=== PATIENT | male | born 1985 | race Hispanic/Latino ===

== ENCOUNTER 2019-12-05 19:17 | Emergency (ER) | payer OTHER ==
[2019-12-05] MEDS ORDERED: GUAIFENESIN-DM 200/20 MG 10 ML ONE (19:43)
[2019-12-05] MEDS ORDERED: BENZONATATE 100 MG CAPSULE PO ONE (19:44)
[2019-12-05] MEDS ORDERED: METHYLPREDNISOLONE SOD SUCC 125MG/2ML VIAL ONE (19:44)
[2019-12-05] MEDS ORDERED: SODIUM CHLORIDE 0.9% 1000ML 1,000 ML IV ONE (19:45)
[2019-12-05] MEDS ORDERED: ACETAMINOPHEN EXTRA STRENGTH 500 MG TABLET ONE (19:45)
[2019-12-05 19:47] LABS: BASOPHILS % (AUTO) 0.3 % (0.0-5.0); EOSINOPHILS % (AUTO) 0.7 % (0.0-8.0); HEMATOCRIT 45.6 % (42-54); LYMPHOCYTES % (AUTO) 32.7 % (21.0-51.0); MEAN CORPUSCULAR HEMOGLOBIN 30.4 pg (27.0-33.0); MEAN CORPUSCULAR HGB CONC 33.6 g/dL (32.0-36.0); MEAN CORPUSCULAR VOLUME 90.5 fL (79-99); MONOCYTES % (AUTO) 10.2 % (3.0-13.0); NEUTROPHILS % (AUTO) 55.4 % (40.0-77.0); PLATELET COUNT (AUTO) 200 K/uL (130-400); RED BLOOD CELL COUNT(AUTO) 5.04 MIL/uL (4.50-6.20); RED CELL DISTRIBUTION WIDTH 12.8 % (11.0-15.5); WHITE BLOOD COUNT (AUTO) 2.9 K/uL (4.8-10.8)
[2019-12-05 20:00] LABS: CREATININE 1.2 mg/dL (0.5-1.5); POTASSIUM 4.5 mmol/L (3.5-5.1)
[2019-12-05 20:14] LABS: ALBUMIN 2.9 g/dL (3.5-5.0); BILIRUBIN,TOTAL 0.3 mg/dL (0.2-1.0); TOTAL PROTEIN, SERUM 7.5 g/dL (6.0-8.3)
[2019-12-05 20:38] LABS: BAND NEUTROPHILS % (MANUAL) 1 % (0-2); LYMPHOCYTES % (MANUAL) 32 % (22-44); MAN.DIFF COMMENT-IMPRESSION MANUAL DIFFERENTIAL; MONOCYTES % (MANUAL) 6 % (2-9); SEGMENTED NEUTROPHILS % 61 % (40-70)
[2019-12-05 20:39] LABS: PLATELET MORPHOLOGY COMMENT ADEQUATE
== END 2019-12-05 21:06 | disposition home or self-care (01) ==
LOC: EDH 19:17
DX: J10.1 Influenza due to other identified influenza virus with other respiratory manifestations (principal); I10 Essential (primary) hypertension; E11.9 Type 2 diabetes mellitus without complications; Z88.0 Allergy status to penicillin; Z72.0 Tobacco use
CPT/HCPCS: 36415; 71046; 80053; 82550; 83605; 85025; 87804 ×2; 96374; 99284; J2930; J7030

== ENCOUNTER 2024-08-22 18:46 | Emergency (ER) | payer BC ==
[~2024-08-22] VITALS: Ht 172.7 cm; Wt 158.8 kg
--- NOTE | 2024-08-22 18:54 | ERN ---
ED Note History of Present Illness Stated Complaint: RT EYE PAIN Chief Complaint: Eye Problems Time Seen by MD: 18:49 Dictation: PATIENT IS A 39-YEAR-OLD MALE COMING IN TODAY WITH COMPLAINTS OF PAIN TO THE RIGHT EYE STATUS POST AN INJURY EARLIER TODAY. HE STATES HE WAS WORKING IN [facility] UNDER A CAR WHEN SOMETHING FELL IN HIS RIGHT EYE. ATTEMPTED TO WASHED OUT WITH EYE WASH WAS UNSUCCESSFUL. DENIES ANY CONTACT LENSES, DOES NOT WEAR PROTECTIVE EYE COVERING WITH WORKING. TETANUS SHOT IS UP TO DATE. Allergies: Coded Allergies: Penicillins (Unverified Allergy, Unknown, 12/05/19) Past Medical History PSYCH History: no pertinent psych hx RN Note Reviewed/Agreed w/PFSH: Yes Review of System Dictation CONSTITUTIONAL: NEGATIVE EXCEPT FOR HPI HEAD/FACE: NEGATIVE EXCEPT FOR HPI EENT: NEGATIVE EXCEPT FOR HPI RIGHT EYE PAIN RESPIRATORY: NEGATIVE EXCEPT FOR HPI GASTROINTESTINAL/ABDOMINAL: NEGATIVE EXCEPT FOR HPI GENITOURINARY: NEGATIVE EXCEPT FOR HPI MUSCULOSKELETAL: NEGATIVE EXCEPT FOR HPI INTEGUMENTARY: NEGATIVE EXCEPT FOR HPI NEUROLOGICAL/PSYCH: NEGATIVE EXCEPT FOR HPI HEMATOLOGIC/LYMPHATIC: NEGATIVE EXCEPT FOR HPI ALL SYSTEMS NEGATIVE, EXCEPT NOTED ABOVE. 13 POINT REVIEW OF SYSTEMS ASSESSED AND ALL NEGATIVE EXCEPT FOR ABOVE. Initial Vital Sign VS Vital Signs Date Time Temp Pulse Resp B/P (MAP) Pulse Ox O2 Delivery O2 Flow Rate FiO2 08/22/24 18:49 98.2 78 18 223/128 98 Physical Exam Dictation VITAL SIGNS REVIEWED GENERAL APPEARANCE: ALERT, ORIENTED X 3, MODERATE ACUTE DISTRESS, WELL DEVELOPED, NOURISHED. HEAD AND FACE: NON-TRAUMATIC. EYES: PERRL, RIGHT CONJUNCTIVA INJECTED, EYELID NO TRAUMA, ANTERIOR CHAMBER WITH ARCUS SENILIS. EARS: PINNAS INTACT AND NO SIGNS OF TRAUMA OR ERYTHEMA EAR CANALS CLEAR AND NO DISCHARGE TM NO ERYTHEMA NOSE: NO DISCHARGE, NO BLEEDING. OROPHARYNX: MOUTH NORMAL, TONGUE PINK, PHARYNX CLEAR,NO ERYTHEMA, TONSILS NO EXUDATES, NO ABSCESSES NOTED, MUCOUS MEMBRANE MOIST NECK: SUPPLE, NON-TENDER, NO THYROMEGALY, NO MASSES, NO JVD, NO BRUITS BREAST:DEFERRED CHEST:NO TENDERNESS, NO CREPITUS, NO PARADOXICAL MOVEMENT, NO RETRACTIONS LUNGS:CLEAR, WELL-VENTILATED, SYMMETRIC, NO RALES, NO WHEEZING, NO RHONCHI, NO STRIDOR, GOOD BREATH SOUNDS BILATERALLY HEART: REGULAR RATE, REGULAR RHYTHM, NO MURMUR, NO GALLOPS VASCULAR: NO PERIPHERAL EDEMA, ABDOMEN: SOFT, POSITIVE BOWEL SOUNDS, NONDISTENDED, NO GUARDING, NONTENDER, NO REBOUND, NO MASSES NO HEPATOMEGALY, NO SPLENOMEGALY, NO CARIAS'S SIGN, NO HERNIAS. RECTAL: DEFERRED GENITAL: DEFERRED NEUROLOGICAL: NORMAL SPEECH, MOTOR FUNCTION INTACT, SENSORY FUNCTION INTACT MUSCULOSKELETAL: NECK NONTENDER, FULL RANGE OF MOTION, BACK NONTENDER, FULL RANGE OF MOTION, EXTREMITIES: NONTENDER, FULL RANGE OF MOTION SKIN: COLOR PINK, DRY, NO TURGOR, NO RASH, NO LACERATIONS, NO ABRASIONS, NO CONTUSIONS. LYMPHATIC: DEFERRED Results (Laboratory/Radiology) Labs Reviewed?: Yes ED Course ED Course Orders Procedure Category Date Status Time Tetracaine Hcl PHA 08/22/24 In Process (Pontocaine 0.5% 19:00 Fluorescein Sodium PHA 08/22/24 In Process (Jkeke-B-Vjrfp At) 19:00 Ibuprofen 800 Mg Tab PHA 08/22/24 Complete (Motrin) 19:00 Visual Acuity Test CPOE 08/22/24 Transmitted (Er) 18:51 Erythrocin 0.5% Ophth PHA 08/22/24 Verified Oint (Erythrocin 0 20:00 Current Medications Medications (Trade) Dose Ordered Sig/Ana Route PRN Reason Start Time Stop Time Status Last Admin Dose Admin Fluorescein Sodium (Yumpw-A-Saoxo At) 1 strip ONCE OP 08/22/24 19:00 09/21/24 18:59 08/22/24 19:16 Ibuprofen (moTRIN) 800 mg ONCE ONCE PO 08/22/24 19:00 08/22/24 19:01 DC Tetracaine HCl (Pontocaine 0.5% Ophth Soln) 2 drop ONCE OP 08/22/24 19:00 09/21/24 18:59 08/22/24 19:17 Vital Signs Date Time Temp Pulse Resp B/P (MAP) Pulse Ox O2 Delivery O2 Flow Rate FiO2 08/22/24 18:49 98.2 78 18 223/596 20 1390, RIGHT EYE EXAMINED WITH FOREIGN BODY REMOVED AND INJURIES IDENTIFIED. WE WILL FOLLOW TO APPLY ERYTHROMYCIN OPHTHALMIC OINTMENT PATIENT WILL BE DISCHARGED HOME WITH ANALGESIA AND TOLD TO FOLLOW UP AT [facility] Medical Decision Making MDM MEDICAL DECISION-MAKING BASED ON VISUAL ACUITY CHECK AND EYE EXAM WITH TETRACAINE FOREIGN BODY REMOVED ABRASIONS IDENTIFIED AND OPHTHALMIC OINTMENT WAS APPLIED BY RN. PATIENT DISCHARGED HOME TO FOLLOW UP WITH [facility] Procedure Procedure Dictation: 1929 PROCEDURE EXPLAINED TO PATIENT AND HE AGREED TO PROCEED TETRACAINE TWO DROPS TO RIGHT EYE FLUORESCEIN APPLIED RIGHT EYE EXAMINED WITH WOOD'S LAMP TO INCLUDE EVERSION OF UPPER LID. PATIENT HAD FOREIGN BODY TO THE INNER CANTHUS THAT WAS REMOVED WITH A Q-TIP HE HAD A CORNEAL ABRASION AT 12:00 O'CLOCK, CONJUNCTIVAL ABRASION AT 03:00 O'CLOCK PATIENT TOLERATED WELL DX & DISP Disposition: Discharge Departure Impression: Primary Impression: Abrasion of right conjunctiva Additional Impressions: Right corneal abrasion, Foreign body of right eye Condition: Stable Scripts Ibuprofen (Ibuprofen 800 mg Tab) 800 Mg Tab 800 MG PO Q8H PRN for fever or pain, #30 TAB 0 Refills Prov: VALERIE SANDOVAL NP 08/22/24 Erythromycin Base (Erythromycin) 5 Mg/Gram (0.5 %) Oint...g. 1 APPL OP QID for 7 Days, #5 GM 0 Refills apply 1 cm ribbon into the lower conjunctival sac, RIGHT EYE Prov: VALERIE SANDOVAL NP 08/22/24 Additional Instructions: FOLLOW-UP WITH PRIMARY CARE PROVIDER IN 1 TO 2 DAYS. TAKE MEDICATIONS DIRECTED HERE IN THE EMERGENCY ROOM. OKAY TO CONTINUE HOME MEDICATIONS UNLESS OTHERWISE DISCUSSED DURING YOUR VISIT IN THE EMERGENCY ROOM TODAY. RETURN TO YOUR NEAREST EMERGENCY ROOM IF SYMPTOMS WORSEN OR IF THERE IS NO IMPROVEMENT. CALL 911 IF YOU NEED IMMEDIATE ASSISTANCE. TAKE TYLENOL OR MOTRIN [id number] NEEDED AND IF NO CONTRAINDICATIONS ARE PRESENT. INCREASE ORAL HYDRATION. A WOUND CULTURE OR URINE CULTURE WAS ORDERED HERE IN THE EMERGENCY ROOM DEPARTMENT PLEASE FOLLOW-UP WITH PRIMARY CARE PROVIDER AND ADVISE THEM TO GET REPEAT PORTS FROM OUR FACILITY. IF YOU HAD ANY ABI WRAP/SPLINTS THAT WERE APPLIED HERE, PLEASE DO NOT REMOVE THEM UNTIL YOU SEE YOUR PRIMARY CARE OR SPECIALTY. APPLY ERYTHROMYCIN OINTMENT TO YOUR RIGHT EYE DIRECTED. FOLLOW UP WITH [facility] ON SUNDAY, CALL FOR AN APPOINTMENT. Referrals: SELF,REFERRAL (PCP) Time of Disposition: 19:44 I have reviewed the case, and I agree with, Diagnosis and Plan VALERIE SANDOVAL NP Aug 22, 2024 18:54
[2024-08-22] MEDS: FLUORESCEIN SODIUM 1 STRIP STRIP OP SCH (19:16)
[2024-08-22] MEDS: TETRACAINE HCL 0.5% 4 ML OPHTH SOLN OP SCH (19:17)
[2024-08-22] MEDS ORDERED: ERYT1OIN7 OP (19:46)
[2024-08-22] MEDS ORDERED: IBUP-2077 PO (19:46)
[2024-08-22 19:50] VITALS: BP 184/81; PULSE 72; RESP 18; TEMP 98.2; O2SAT 97
[2024-08-22] MEDS: ibuPROFEN 800 MG TAB PO ONE (20:01)
[2024-08-22] MEDS: ERYTHROMYCIN BASE 0.5% OPHTH OINT 1 GM TUBE OU SCH (20:01)
== END 2024-08-22 20:31 | disposition home or self-care (01) ==
LOC: EDH 18:46
DX: T15.11XA Foreign body in conjunctival sac, right eye, initial encounter (principal); Z88.0 Allergy status to penicillin; W44.8XXA Other foreign body entering into or through a natural orifice, initial encounter; Y93.89 Activity, other specified; Y92.89 Other specified places as the place of occurrence of the external cause; Y99.8 Other external cause status
CPT/HCPCS: 65205; 99284

== ENCOUNTER 2025-07-06 08:31 | Emergency (ER) | payer BC ==
[~2025-07-06] VITALS: Ht 172.7 cm; Wt 144.0 kg
[~2025-07-06 08:31] MED LIST: ERYT1OIN7 OP; IBUP-2077 PO
--- NOTE | 2025-07-06 09:45 | HMCIMG ---
EXAM: US Scrotum. CLINICAL HISTORY: testicle pain TECHNIQUE: Real-time ultrasound of the scrotum with color Doppler and image documentation. COMPARISON: None provided. FINDINGS: RIGHT TESTICLE: Normal in size and echogenicity, no abnormal mass. Normal Doppler flow. LEFT TESTICLE: Normal in size and echogenicity, no abnormal mass. Normal Doppler flow. EPIDIDYMIDES: The epididymes are normal in size and demonstrate Doppler flow within normal limits. Tiny cyst with no septations measuring 2x2x1 cm. SCROTUM: Bilateral minimal hydrocele. No varicocele, or extratesticular mass seen. IMPRESSION: Right epididymal simple cyst. Bilateral minimal hydrocele. No acute abnormality evident on sonographic examination of the scrotum. /Louisa
--- NOTE | 2025-07-06 09:54 | ERN ---
General Chief Complaint: Testicular Injury/Pain Stated Complaint: LT TESTICULAR PAIN Time Seen by MD: 08:35 History of Present Illness Initial Comments 39-year-old male, obese, she had diabetes hypertension, presents for penis pain and testicular pain. Patient reports for the last month or so he has had some chapping and discomfort in the tip of the penis as well as some discomfort with the bilateral scrotum. No fevers or systemic illness. No burning sensation with urination. He reports that he is a diabetic but has been off metformin. He has not been taking any hypertensive medications. He had a similar presentation with this a couple of years ago that cleared on its own. Allergies: Coded Allergies: Penicillins (Unverified Allergy, Unknown, 12/05/19) Home Meds Active Scripts Ibuprofen (Ibuprofen 800 mg Tab) 800 Mg Tab, 800 MG PO Q8H PRN for fever or pain, #30 TAB 0 Refills Prov:VALERIE SANDOVAL FRONT END SPECIALIST 08/22/24 Erythromycin Base (Erythromycin) 5 Mg/Gram (0.5 %) Oint...g., 1 APPL OP QID for 7 Days, #5 GM 0 Refills apply 1 cm ribbon into the lower conjunctival sac, RIGHT EYE Prov:VALERIE SANDOVAL FRONT END SPECIALIST 08/22/24 Past Medical History Past Medical History: Diabetes-Type II, Hypertension Medical History Other: NON COMPLIANT W/ MEDS Past Surgical History: None ROS Dictation CONSTITUTIONAL: No chills, no fever, no weakness, no diaphoresis, no malaise. HEAD/FACE: No signs of trauma. EENT: No eye pain, no blurred vision, no tearing, no double vision, no ear pain, no ear discharge, no nose pain, no nasal congestion, no throat pain, no throat swelling, no mouth pain. RESPIRATORY: No cough, no orthopnea, no SOB, no stridor, no wheezing. CARDIOVASCULAR: No chest pain, no edema, no palpitations, no syncope. GASTROINTESTINAL/ABDOMINAL: No abdominal pain, no constipation, no diarrhea, no nausea, no vomiting. GENITOURINARY: Testicular pain, pain has been MUSCULOSKELETAL: No back pain, no gout, no joint pain, no joint swelling, no muscle pain, no muscle stiffness, no neck pain. INTEGUMENTARY: No change in color, no change in hair/nails, no dryness, no lesion, no lumps, no rash. NEUROLOGICAL/PSYCH: No anxiety, not depressed, no emotional problem, no headache, no numbness, no pre-existing deficit, no history of seizures, no tremors, no weakness. HEMATOLOGIC/LYMPHATIC: Not anemic, no history of blood clots, no apparent bleeding, no bruising, glands not swollen. All Systems Negative, Except as Noted. Physical Exam Physical Exam Dictation VITAL SIGNS: Reviewed. GENERAL APPEARANCE: Alert, oriented x3, no acute distress, obese. HEAD AND FACE: Non-traumatic. EYES: PERRL, pink conjunctivas, eyelid no trauma, anterior chamber clear. EARS: Pinnas intact and no signs of trauma or erythema. Ear canals clear and no discharge. TMs no erythema. NOSE: No discharge, no bleeding. OROPHARYNX: Mouth normal, teeth no caries, tongue pink. Pharynx clear, no erythema. Tonsils no exudates, no abscesses noted. Mucous membrane moist. NECK: Supple, non-tender, no thyromegaly, no masses, no JVD, no bruits. BREAST: Deferred. CHEST: No tenderness, no crepitus, no paradoxical movement, no retractions. LUNGS: Clear, well-ventilated, symmetric, no rales, no wheezing, no rhonchi, no stridor, good breath sounds bilaterally. HEART: Regular rate, regular rhythm, no murmur, no gallops. VASCULAR: No peripheral edema. ABDOMEN: Soft, positive bowel sounds, nondistended, no guarding, nontender, no rebound, no masses no hepatomegaly, no splenomegaly, no Cartagena's sign, no hernias. RECTAL: Deferred. GENITAL: Deferred. NEUROLOGICAL: Normal speech, gross motor function intact, gross sensory function intact. MUSCULOSKELETAL: Neck nontender, full range of motion, back nontender, full range of motion. EXTREMITIES: Nontender, full range of motion. SKIN: Color pink, dry, no turgor, no rash, no lacerations, no abrasions, no contusions. LYMPHATICS: Deferred. Results Laboratory and Microbiology Lab and Micro Result Laboratory Tests Test 07/06/25 09:56 Whole Blood Glucose 327 MG/DL (70-110) H MDM Chief complaint of penis pain and testicular pain Historian: Patient Comorbidities: Obesity, hypertension, diabetes Limitations by social determinants of health: None Differential diagnosis: Balanitis, torsion, mass, other Clinical exam he has a balanitis. Testicles are intact. There is no lesions. Normal lie. Ultrasound shows a small epididymal cyst bilateral hydroceles. Unlikely to be causing the patient's symptoms. He has clear balanitis and fissures of the foreskin. Likely causing his symptoms. His blood glucose 327. We will prescribe hypertension medications and diabetes medicines since he used to be on these but ran out. We will also prescribed nystatin. Patient agrees with the plan. ED Course Orders Procedure Category Date Status Time Us Scrotum & Contents US 07/06/25 Resulted 08:40 Urinalysis Profile LAB 07/06/25 In Process 08:40 Bedside Glucose CPOE 07/06/25 Transmitted Fingerstick 09:49 Vital Signs Date Time Temp Pulse Resp B/P (MAP) Pulse Ox O2 Delivery O2 Flow Rate FiO2 07/06/25 09:50 98.1 80 18 173/115 97 Room Air* 0 21 07/06/25 08:33 98.2 78 16 167/108 99 Room Air 0 DX & DISP Disposition: Discharge Departure Impression: Primary Impression: Balanitis Additional Impressions: Epididymal cyst, Hypertension Condition: Stable Scripts Nystatin (Nystatin) 100,000 Unit/Gram Cream.gm. 1 APPL TP TID for 5 Days, #15 GM 0 Refills apply to affected area(s) Prov: TASIA SCHWARZ DO 07/06/25 Glipizide (Glipizide ER) 5 Mg Tab.er.24 1 TAB PO DAILY for 30 Days, #30 TAB 0 Refills Prov: TASIA SCHWARZ DO 07/06/25 Metformin HCl (Metformin HCl) 1,000 Mg Tablet 1 TAB PO BID for 30 Days, #60 TAB 0 Refills Prov: TASIA SCHWARZ DO 07/06/25 Lisinopril (Lisinopril) 10 Mg Tablet 1 TAB PO DAILY for 30 Days, #30 TAB 0 Refills Prov: TASIA SCHWARZ DO 07/06/25 Additional Instructions: Your symptoms are most consistent with a balanitis, which is often overgrowth of yeast. This will cause dryness and chapping and irritation. I have prescribed nystatin cream. Apply multiple times frequently until your symptoms improve. The ultrasound also shows a very small epididymal cyst. These are often benign. This is unlikely to be causing your symptoms. Otherwise the ultrasound is unremarkable. Wear supportive underwear. Your glucose is elevated (327). I have prescribed metformin and glipizide. Take as prescribed. Your blood pressure was also elevated. I have prescribed lisinopril. Take as prescribed. As we discussed, I highly recommend that you follow up with a primary doctor for further treatment and evaluation. Referrals: SELF,REFERRAL (PCP) TASIA SCHWARZ DO Jul 06, 2025 09:54
[2025-07-06 10:05] LABS: APPEARANCE,URINE CLEAR (CLEAR); GLUCOSE, URINE (UA) >=1000 mg/dL (NEGATIVE); LEUKOCYTE ESTERASE ,URINE NEGATIVE Leu/uL (NEGATIVE); NITRATE,URINE NEGATIVE (NEGATIVE); OCCULT BLOOD,URINE NEGATIVE (NEGATIVE)
[2025-07-06] MEDS ORDERED: METF-446 PO (10:08)
[2025-07-06] MEDS ORDERED: LISI10TA24 PO (10:08)
[2025-07-06] MEDS ORDERED: NYST15CR34 TP (10:08)
[2025-07-06] MEDS ORDERED: GLIP-300 PO (10:08)
[2025-07-06 10:10] LABS: ADD UA MICROSCOPIC YES
[2025-07-06 10:15] LABS: SQUAMOUS EPITHELIAL CELL,UR RARE /HPF (0-2)
[2025-07-06 11:08] VITALS: BP 156/105; PULSE 81; RESP 26; TEMP 98.1; O2SAT 93
== END 2025-07-06 11:24 | disposition home or self-care (01) ==
LOC: EDH 08:31
DX: N48.1 Balanitis (principal); N50.3 Cyst of epididymis; I10 Essential (primary) hypertension; E11.9 Type 2 diabetes mellitus without complications; E66.9 Obesity, unspecified; Z88.0 Allergy status to penicillin; Z79.84 Long term (current) use of oral hypoglycemic drugs; Z91.148 Patient's other noncompliance with medication regimen for other reason; Z68.42 Body mass index [BMI] 45.0-49.9, adult
CPT/HCPCS: 76870; 81001; 82948; 99284